=== PATIENT | male | born 1970 | race Two or more races ===

== ENCOUNTER 2021-12-20 11:14 | Emergency (ER) | payer OTHER ==
[~2021-12-20] VITALS: Ht 170.2 cm; Wt 72.6 kg
[2021-12-20 11:26] VITALS: BP 136/89
--- NOTE | 2021-12-20 13:33 | NUR ---
COVID PCR COLLECTED AND SENT TO LAB
--- NOTE | 2021-12-20 13:35 | NUR ---
Patient discharged to home in stable condition. Written and verbal after care instructions given. Patient verbalizes understanding of instruction.
== END 2021-12-20 13:35 | disposition home or self-care (01) ==
LOC: ER 11:27
DX: R61 Generalized hyperhidrosis (principal); R51.9 Headache, unspecified; Z20.822 Contact with and (suspected) exposure to COVID-19; R91.8 Other nonspecific abnormal finding of lung field
CPT/HCPCS: 99284; 71045; 87426; U0003; C9803 ×2